=== PATIENT | female | born 1945 | race Caucasian/White ===

== ENCOUNTER 2023-03-26 09:00 | Outpatient (RCR) | payer MEDICARE, OTHER, SELFPAY ==
[2023-02-21 08:23] VITALS: BP 110/70
[2023-02-21 08:55] VITALS: BP 110/70; PULSE 80; RESP 16; TEMP 36.3; O2SAT 98
[2023-02-21 09:18] VITALS: BP 114/63; PULSE 72; RESP 16; TEMP 36.4; O2SAT 98
[2023-02-21 10:03] VITALS: BP 122/73; PULSE 75; RESP 16; TEMP 36.2; O2SAT 100
[2023-02-21 10:48] VITALS: BP 110/69; PULSE 74; RESP 16; TEMP 36.3; O2SAT 100
[2023-02-21 11:03] VITALS: BP 108/65; PULSE 77; RESP 16; TEMP 36.6; O2SAT 96
--- NOTE | 2023-02-24 15:42 | ONC.NURNOTE ---
Dx: Multiple Myeloma
[2023-03-26] VITALS (10 sets, daily range): BP systolic 109–137; BP diastolic 68–80; PULSE 56–69; RESP 16–18; TEMP 36.1–36.9; O2SAT 97–99
[2023-03-26 11:18] LABS: Basophils Percent Auto 2.9 % (0.0-3.0); Hematocrit 22.1 % (33.0-51.0); Immature Granulocytes Pct Auto 7.3 %; Mean Corpuscular HGB Conc 33 gm/dL (32-36); Mean Corpuscular Hemoglobin 32 pg (26-34); Mean Corpuscular Volume 97 fL (80-100); Monocytes Percent Auto 20.4 % (0.0-11.0); Neutrophils Percent Auto 50.4 % (42.0-72.0); Red Blood Count 2.28 m/uL (4.00-5.20)
[2023-03-26 11:33] LABS: Hemoglobin* 7.3 gm/dL (12.0-16.0); Platelet Count* 9 K/uL (140-440); White Blood Count* 1.37 K/uL (4.50-11.00)
[2023-03-26 11:34] LABS: Slide Review Reflex Yes
--- NOTE | 2023-03-26 16:36 | ONC.NURNOTE ---
Pt here for platelet transfusion from [facility]. Upon arrival to [facility] pt states she began noticing blood in her stools this am. Hgb on 03/24/23 was 9.3. Spoke to Shannan GAMBLE at [facility], order received to draw an additional CBC prior to starting platelets to assess hemoglobin. Hemoglobin came back at 7.3, spoke to Shannan GAMBLE at [facility] again and they advised pt to be seen in the emergency room. Report given to Elizabet GAMBLE, no beds available at time of report. Platelet transfusion started prior to pt transferring to Emergency room for evaluation. Raghavendratransfer and pumphouse operator chief transported pt to ED via wheelchair at 1220 with pt's daughter present.
--- NOTE | 2023-03-26 19:02 | PC.NURSE ---
End of transfusion note: Patient pleasant and cooperative. VSS, RA, afebrile. Patient does not c/o headache, SOB, fever or chills. Transfusion of 1 unit PRBC ended at 184 no reactions.
[2023-03-26 22:48] LABS: Slide Review Acceptable Review (Acceptable)
[2023-03-27 00:29] LABS: Hematocrit 28.9 % (33.0-51.0); Hemoglobin* 9.7 gm/dL (12.0-16.0); Lymphocytes Percent Auto 37.6 % (20-44); Mean Corpuscular HGB Conc 34 gm/dL (32-36); Mean Corpuscular Hemoglobin 31 pg (26-34); Mean Corpuscular Volume 92 fL (80-100); Monocytes Percent Auto 18.8 % (0.0-11.0); Neutrophils Percent Auto 39.6 % (42.0-72.0); RDW Coefficient of Variation % 19.8 % (11.5-15.5); Red Blood Count 3.13 m/uL (4.00-5.20)
[2023-03-27 00:33] LABS: Platelet Count* 11 K/uL (140-440); White Blood Count* 1.01 K/uL (4.50-11.00)
[2023-03-27 00:34] LABS: Slide Review Reflex Yes
[2023-03-27 00:44] LABS: Slide Review Acceptable Review (Acceptable)
--- NOTE | 2023-03-27 01:41 | PC.NURSE ---
RN received report on pt at 1900. Outpatient status for two units of blood products per standing order. Pt reported bloody diarrhea and left it in the toilet for RN to note. RN administered final unit of PRBC, VS remained stable throughout infusion, pt denied any sx. RN witnessed two additional BRB stools in toilet. MD updated, family requested CBC to be drawn post second unit of blood. Hospitalist ordered post transfusion CBC. Daughter contacted [facility] due to concern of ongoing bright red stools. Oncologist encouraged pt to seek evaluation and care at a larger facility ED. Lab reported critical results, pt updated. Encouraged to seek further care and evaluation in ED. Pt and daughter chose to go directly to [place] ED. Pt requested to leave IV in due to being a difficult cannulation. Charge Nurse and Lead Injection Mold Technician aware. Upon discharge pt ambulating to bathroom independently, stable gait, VS stable, requested w/c to exit because she was tired. Daughter supported pt at bedside and carried all belongings out.
== END 2023-03-26 19:12 | disposition home or self-care (01) ==
LOC: CCIC 09:00
PROVIDERS: Internal Medicine; PCP Family Medicine; Referring Provider Family Medicine; Visit Provider Clinical Nurse Specialist
DX: C90.00 Multiple myeloma not having achieved remission (principal); C90.01 Multiple myeloma in remission
CPT/HCPCS: 36415; 36430; 85018; 85025; 86850; 86900; 86901; 86922; 99211; 99284; P9016; P9073

== ENCOUNTER 2023-03-26 12:30 | Emergency (ER) | payer MEDICARE, OTHER, SELFPAY ==
[2023-03-26 12:35] VITALS: BP 138/79; PULSE 59; RESP 16; TEMP 36.6; O2SAT 99; BMI 24.0
--- NOTE | 2023-03-26 13:31 | ED.GIBLEED ---
HPI - GI Bleed General Chief complaint: GI Bleed Stated complaint: From [facility] Time Seen by Provider: 03/26/23 12:49 History of Present Illness HPI Narrative: This 77-year-old female is sent here from infusion clinic with a report that she had some bright red blood mixed in with her stool today. The patient has multiple myeloma aunt and is undergoing treatments. She has low platelets and low hemoglobin in her history and does have standing orders for platelets and red blood cell infusions. It is not completely clear why the patient is sent here. The patient states that she feels normal and reports a hemoglobin of 4.4 last week. She received 3 units of blood and her hemoglobin on Friday was 9.2. Today her hemoglobin returns at 7.3. The patient states that she has had a colonoscopy with normal results but this was years ago. Related Data Home Medications Medication Instructions Recorded Confirmed acyclovir 400 mg tablet 400 mg PO BID infectious disease 02/21/23 02/21/23 calcium carbonate 600 mg-vitamin 1 tab PO DAILY 02/21/23 02/21/23 D3 10 mcg (400 unit) tablet (Calcium 600 + D(3)) dexamethasone 4 mg tablet 20 mg PO QWEEK 02/21/23 02/21/23 diphenhydramine HCl 25 mg capsule 25 mg PO Q8H PRN 02/21/23 02/21/23 (Allergy (diphenhydramine)) levothyroxine 50 mcg tablet 50 mcg PO DAILY 02/21/23 02/21/23 loperamide 2 mg capsule (Imodium 2 mg PO DAILY 02/21/23 02/21/23 A-D) multivitamin 1 tab PO DAILY 02/21/23 02/21/23 rosuvastatin 10 mg tablet 10 mg PO Q OTHER DAY 02/21/23 02/21/23 Allergies Allergy/AdvReac Type Severity Reaction Status Date / Time adhesive Allergy Unknown Verified 02/21/23 09:15 levofloxacin [From Levaquin] AdvReac Mild Verified 02/21/23 09:15 pomalidomide AdvReac Mild Rash Verified 02/21/23 09:15 Review of Systems Status of ROS: Reports: 10 or more systems reviewed and unremarkable except as noted in History and below Narrative: Constitutional: No fevers, no weight gain or loss. Eyes: No discharge. No vision changes. HENT: No congestion, no sore throat, no ear pain. Cardiovascular: No chest pain, no palpitations. Respiratory: No shortness of breath, no wheezes, no cough. Gastrointestinal: No abdominal pain, no vomiting,. She states that she typically has diarrhea. She reports some blood in the stool today. Genitourinary: No dysuria, no hematuria. Musculoskeletal: Normal range of motion. Skin: No rashes, no pruritis. Neurological: No dizziness, weakness, sensory change, speech change. Endo/Heme/Allergies: Low platelets and low hemoglobin. Pysch: no suicidality, no anxiety, no insomnia. All other systems reviewed and are negative. Exam Narrative: Exam Narrative: Constitutional: Well-developed, well-nourished, no acute distress. HEENT: Normocephalic, atraumatic. Neck: Normal range of motion. Nontender. Supple. Heart: Regular. No murmurs. Normal rate. Intact distal pulses. Lungs: Clear to auscultation. No chest discomfort. No wheezes, rhonchi, or rales. Abdomen: Normal bowel sounds. Nontender. No rebound tenderness. Genitalia: Deferred. Back: No midline tenderness. Normal range of motion. Extremities: Normal range of motion. No injury. Skin: Intact. No rash. Warm. No erythema or pallor. Neurologic: No altered sensation. No weakness. Alert and oriented. Psychiatric: No suicidality. No anxiety or depression. No insomnia. Nursing notes and vitals signs are reviewed. Const: Vital Signs, click to edit/add: Vital Signs - 24 hr 03/26/23 12:35 Temperature 97.8 F Pulse Rate [Pulse Oximeter] 59 L Respiratory Rate 16 Blood Pressure [Le ft Upper Arm] 138/79 Pulse Oximetry 99 Oxygen Delivery Me thod Room Air Course Vital Signs Vital signs: Initial Vital Signs Temperature 97.8 F 03/26/23 12:35 Temperature Source Temporal Artery Scan 03/26/23 12:35 Pulse Rate 59 L 03/26/23 12:35 Pulse Rhythm Regular 03/26/23 12:35 Respiratory Rate 16 03/26/23 12:35 Blood Pressure 138/79 03/26/23 12:35 Blood Pressure Mean 98 03/26/23 12:35 Pulse Oximetry 99 03/26/23 12:35 Oxygen Delivery Method Room Air 03/26/23 12:35 Vital Signs Temperature 97.8 F 03/26/23 12:35 Pulse Rate 59 L 03/26/23 12:35 Respiratory Rate 16 03/26/23 12:35 Blood Pressure 138/79 03/26/23 12:35 Pulse Oximetry 99 03/26/23 12:35 Oxygen Delivery Method Room Air 03/26/23 12:35 Temperature 97.8 F 03/26/23 12:35 Pulse Rate 59 L 03/26/23 12:35 Respiratory Rate 16 03/26/23 12:35 Blood Pressure 138/79 03/26/23 12:35 Pulse Oximetry 99 03/26/23 12:35 Oxygen Delivery Method Room Air 03/26/23 12:35 MDM - GI Bleed MDM Narrative Medical decision making narrative: This patient is sent here from the infusion clinic because she needs an infusion of packed red blood cells. I did call the infusion center as this seemed unclear regarding best plans for the patient. I understand that the infusion center does not have any chairs available to do an infusion today or tomorrow + the patient is receiving platelets and the time when an infusion of packed red blood cells can occur would go beyond the typical hours that the infusion center is open. I did also speak with [facility] regarding plans for this patient. They clarify that the patient does need a transfusion and they will follow-up regarding outcomes of the transfusion and the recurrent need for blood products for her. So the patient is okay to be discharged to an outpatient room somewhere in the hospital here to receive infusion of packed red blood cells. She does have a standing order for this to occur so there is no need for me to place the chin order. Discharge Plan Discharge Clinical Impression: Thrombocytopenia, Lower gastrointestinal hemorrhage, Chronic anemia, Multiple myeloma Patient Disposition: Home w/ Parent or Adult Condition: Unchanged Additional Instructions: Your discharge from the emergency room in order to receive infusion of 2 units of packed red blood cells as an outpatient in this facility. Follow-up with [facility]. Return if worsening. Prescriptions: No Action acyclovir 400 mg tablet 400 mg PO BID levothyroxine 50 mcg tablet 50 mcg PO DAILY dexamethasone 4 mg tablet 20 mg PO QWEEK Patient Comments: Wednesdays rosuvastatin 10 mg tablet 10 mg PO Q OTHER DAY loperamide [Imodium A-D] 2 mg capsule 2 mg PO DAILY calcium carbonate-vitamin D3 [Calcium 600 + D(3)] 600 mg-10 mcg (400 unit) tablet 1 tab PO DAILY diphenhydramine HCl [Allergy (diphenhydramine)] 25 mg capsule 25 mg PO Q8H PRN multivitamin Tablet 1 tab PO DAILY Follow Up/Referrals: Ashley Sutherland MD [Primary Care Provider] - Stand Alone Forms: Tarisa Info Instructions
== END 2023-03-26 14:47 | disposition home or self-care (01) ==
PROVIDERS: Emergency Provider Emergency Medicine Emergency Medical Services; PCP Family Medicine
DX: D69.59 Other secondary thrombocytopenia (principal); K92.2 Gastrointestinal hemorrhage, unspecified; D53.9 Nutritional anemia, unspecified; C90.00 Multiple myeloma not having achieved remission
CPT/HCPCS: 36415; 36430; 85025; 86850; 86900; 86901; 86922; 99211; 99284; P9016; P9073